=== PATIENT | female | born 2000 | race Caucasian/White ===

== ENCOUNTER 2024-02-21 08:00 | Outpatient (RCR) | payer MEDICAID, SELFPAY ==
--- NOTE | 2024-02-21 09:00 | BH.SGPN.GN ---
Behaviors/Verbalizations/Mental Status: [] Eye contact is good. Motor activity is appropriate. Appearance is casual. Speech is Appropriate. Mood is anxious. Affect is congruent. Thoughts are linear and logical. No evidence of psychosis. Reviewed daily check in sheet and no reports of suicidal ideations or intent. Client Response/Progress/Benefit: [] Pt provided feedback on a couple of occasions. Attentive. Daily symptom tracker notes 3/5 for anxiety and 2/5 for depressed/irritability. Today was pt's first day in IOP. She choose not to introduce herself or her reasons for entering IOP. Appeared visibly anxious. Peers introduced themselves and provided feedback and advice for her first day in IOP which was beneficial. No progress noted as this was pt's first day in IOP. Will continue in IOP to prevent decompensation, stabilize anxiety, increase healthy coping, and improve functioning. Narrative Note: []
--- NOTE | 2024-02-21 10:10 | BH.SGPN.GN ---
Behaviors/Verbalizations/Mental Status: []Pt alert and oriented, casually dressed and groomed. Eye contact good. Motor activity appropriate. Speech within normal limits. Affect congruent, mood depressed and anxious. Thoughts linear, logical, no signs of hallucinations or delusions. Client Response/Progress/Benefit: [] Pt was an active?participant in small group discussion. Pt?s group worked together to identify benefits of healthy relationships which included insight, accountability, and guidance. Group identified factors that lead to unhealthy relationships. Pt?s personal factors included past negative experiences, poor communication, and poor boundaries. Actively participated in group experiential activity and expressed ideas to group. Benefited from increased insight and awareness of benefits of healthy relationships and factors that contribute to unhealthy relationships. Will continue IOP tx to promote mood stability, increase self-compassion, confidence, and improve daily functioning. Narrative Note: []
--- NOTE | 2024-02-21 10:41 | BH.MTP ---
Master Treatment Plan Patient Information Program Physician:: Dr. Villalba Primary Therapist:: Ashanti Cox, [facility] Psychiatric Diagnoses Psychiatric Diagnoses:: 1. Generalized anxiety disorder F41.1 2. Panic disorder 3. Major depressive disorder, recurrent, moderate 4. Rule out dependent traits Diagnosis Code(s):: F41.1 Estimated LOS Estimated LOS (in weeks):: 6 Problem/Goal #1 Problem/Goal #1 Stated Goal:: Client will reduce overall frequency, intensity, and duration of anxiety so that daily functioning is not impaired. Description of Barriers: Potential barriers include: anxious thoughts, panic attacks, difficulty leaving the house, and cognitive distortions. Functional Impact: The patient is a 23-year-old, single female with a history of depression and anxiety who was referred by her physics technical officer for worsening symptoms of anxiety and depression. The patient is on probation for the past 3 years for drug possession charge that the patient took for a best friend although the patient did not commit the crime and has no never used drugs. The patient has no other history of legal issues. The patient had 2 positive tox screens while on probation and they were false positive due to Wellbutrin but this was traumatic for her so she discontinued all psych meds 2 years ago and feels her anxiety has worsened since then. She states that due to her anxiety is hard to go places and hard to do housework. She has trouble holding a job if it has a set schedule. She has low motivation, sadness and crying spells. She feels like a burden. She endorses hopelessness, worthlessness, erratic energy, decreased concentration, guilt and passive thoughts of . She endorses being a worrier by nature and having some racing thoughts on occasion. She is having panic attacks 1-3 times a day which last anywhere from an hour to all day. Objectives Objective #1: Stated Objective: Client will learn and implement 2-3 calming skills to reduce overall anxiety and manage anxiety symptoms. Interventions: Therapist and group sessions will help client identify physiological warning signs of anxiety, increase awareness of thoughts that increase anxiety, and identify behaviors that reinforce anxious symptoms. Group and individual counseling will teach client calming skills to help manage anxious symptoms. Discharge Criteria: Client will have achieved this goal when can verbalize at least 2 calming skills and reports skills successfully help reduce anxious symptoms. Target Date: 04/03/24 Review Date: 02/21/24 Objective #2: Stated Objective: Client will identify 2-3 anxiety triggers and 2 coping skills to use when feeling anxious. Interventions: Therapist will assist client in exploring what triggers anxiety and teach client coping strategies to effectively manage anxiety symptoms. Discharge Criteria: Client will have met this goal when can identify at least 2 triggers to anxiety and verbalize two healthy ways to cope with feelings of anxiety. Target Date: 04/03/24 Review Date: 02/21/24 Problem/Goal #2 Problem/Goal #2 Stated Goal:: Client will decrease depressive symptoms and isolation due to Major Depressive Disorder through Intensive Outpatient Program. Description of Barriers: Potential barriers include: anxious thoughts, panic attacks, difficulty leaving the house, and cognitive distortions. Functional Impact: The patient is a 23-year-old, single female with a history of depression and anxiety who was referred by her physics technical officer for worsening symptoms of anxiety and depression. The patient is on probation for the past 3 years for drug possession charge that the patient took for a best friend although the patient did not commit the crime and has no never used drugs. The patient has no other history of legal issues. The patient had 2 positive tox screens while on probation and they were false positive due to Wellbutrin but this was traumatic for her so she discontinued all psych meds 2 years ago and feels her anxiety has worsened since then. She states that due to her anxiety is hard to go places and hard to do housework. She has trouble holding a job if it has a set schedule. She has low motivation, sadness and crying spells. She feels like a burden. She endorses hopelessness, worthlessness, erratic energy, decreased concentration, guilt and passive thoughts of . She endorses being a worrier by nature and having some racing thoughts on occasion. She is having panic attacks 1-3 times a day which last anywhere from an hour to all day. Objectives Objective #1: Stated Objective: Client will learn and utilize 2-3 healthy coping strategies to manage depressive symptoms. Interventions: Therapist will utilize CBT techniques to assist client with understanding the connection between thoughts, feelings and behaviors. Education will be provided on behavioral activation. Therapist will assist client in learning internal coping strategies to manage depressive symptoms, along with helping client identify triggers. Discharge Criteria: Client will have achieved this goal when can verbalize and has practiced at least 2 healthy coping strategies that successfully manage depressive symptoms. Target Date: 04/03/24 Review Date: 02/21/24 Objective #2: Stated Objective: Client will identify and replace 2-3 negative thinking patterns that reinforce depressive symptoms. Interventions: Therapist will assist client in developing an awareness of the cognitive messages that reinforce depressive thinking. Therapist will also assist client in challenging negative thinking patterns. Discharge Criteria: Client will have achieved this goal when can identify at least 2 negative thinking patterns, replace negative thinking with more positive, affirmative messages. Target Date: 04/03/24 Review Date: 02/21/24
--- NOTE | 2024-02-21 11:10 | BH.SGPN.GN ---
Behaviors/Verbalizations/Mental Status: [] Pt alert and oriented, casually dressed and groomed. Eye contact fair. Motor activity appropriate. Speech within normal limits. Affect constricted, mood anxious, Thoughts linear, logical, no signs of hallucinations or delusions. Client Response/Progress/Benefit: [] Client responded well to session, engaged and taking notes throughout. Worked with group to connect components of the experiential activity with characteristics of healthy and unhealthy relationships. Attentive during psychoeducation about characteristics of healthy, unhealthy, and abusive relationships. Client reported she would like to work on communication by having a conversation with her partner on any areas she can improve on to make their relationship even better. Appeared to benefit from identifying current healthy relationship attributes and an area client wants to work on to build healthier relationships. Client to continue IOP to improve daily functioning, increase heatlhy coping, and prevent decompensation.
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
--- NOTE | 2024-02-23 09:20 | BH.NA_ITS ---
Physical Data Vital Signs Pulse Rate: 91 Blood Pressure: 129/85 Height/Weight Height: 1.68 m Weight:: 56.699 kg Weight in Pounds: 125.0 lbs Nutritional History Appetite Nutritional Instructions: Describe your appetite:: Good Additional nutritional information:: Client denies recent change in appetite or weight loss or gain. Functional Assessment Sleep Pattern Describe any problems with sleeping: Client states she sleeps about 4-5 hours per night. Sensory/Communication Assess Communication Problems Do you have difficulty understanding what people are saying?: No Medical Problems/History Pain Assessment Do you have acute or chronic pain?: No Surgical History Surgical History Have you had any surgeries? If so, list type and date:: No Substance Abuse Substance Abuse Please describe substance abuse in the last 30 days:: Client denies alcohol or substance use. Client states she does vape nicotine and smoke cigarettes on a daily basis. Client states she has one drink with caffeine per day, usually coffee or soda. Mental Status Summary Mental Status Significant Findings/Observations on Appearance and Mood:: Client is alert and oriented x 4. Client is casually groomed. Client is cooperative with assessment. Client makes fair eye contact. Client's voice has normal rate and volume. Client has a restricted and somewhat flat affect. Client makes logical associations and has normal processing. Client denies delusions/hallucinations. Client denies SI. Suicide Assessment Suicidal Ideation Are you currently or have you been suicidal in the past?: No Physician Notification Past Psychiatric History MH Treatment Hx Past Psychiatric Medications:: Wellbutrin, Lexapro, Zoloft, Buspar Age of first mental health symptoms: Client states she first had issues with anxiety and depression as a teenager and first took medication for her mental health around that time. Describe (age, circumstance, etc) any past hospitalizations: Client states she was hospitalized 2 times as a teenager for anxiety and panic attacks. Current providers for mental health treatment (counselor, psychiatrist, child support case officer, etc.): None. Fall Risk Assessment Age Age: Less than 60 Mental Status Mental Status: Willing & able to ask for assistance when needed Physical Status Physical Status: No problems Impairments Impairments: None Elimination Elimination: Continent AND independent Gait or Balance Gait or Balance: Walks independently Hx of Falls History of falls in the past 6 months: No known history Medications/Substances Medications/substances used within the past 24 hours or ordered to administer: None of the medications/substances list above Total Score Total Points:: 0 RN Summary of Impressions Impressions Recommendations Impressions: Psychiatric Issues: 1. Generalized anxiety disorder 2. Panic disorder 3. Major depressive disorder, recurrent, moderate 4. Rule out dependent traits 5. Primary support, legal and work issues Level of Care How do the client's current symptoms and functional deficits support need for this level of care?: Client was referred to IOP by her geological technical officer, and client also states she has a counselor in the past that recommended this program to her. Client states her anxiety has been a struggle since she was first on probation about 2 years ago for drug possession, although she states she has never done drugs. Client reports having daily panic attacks for about the past year. Client also reports racing thoughts, excessive worry, crying spells and irritability. Client denies SI. IOP will promote gains and prevent further decom pensation while providing social support and skills training.
--- NOTE | 2024-02-23 10:10 | BH.SGPN.GN ---
Behaviors/Verbalizations/Mental Status: []Pt alert and oriented, casually dressed and groomed. Eye contact good. Motor activity appropriate. Speech within normal limits. Affect congruent, mood depressed and anxious. Thoughts linear, logical, no signs of hallucinations or delusions. Client Response/Progress/Benefit: [] Pt engaged participant AEB listening attentively to others and providing input throughout group. Pt worked within their small group to identify strategies to manage inappropriate guilt. Shared a personal example of inappropriate guilt as feeling guilty for running late. Insight this leads to fear that others will hate her and over apologizing or over-compensating. Pt wants to work on combatting inappropriate guilt by challenging distortions and improving emotion regulation skills. Pt seemed to benefit from learning about strategies to manage appropriate and inappropriate guilt. Pt will continue IOP tx to reduce promote mood stability, reinforce healthy coping, and prevent decompensation. Narrative Note: []
--- NOTE | 2024-02-23 10:10 | BH.SGPN.GN ---
Behaviors/Verbalizations/Mental Status: []Pt alert and oriented, neatly dressed and groomed. Eye contact good. Motor activity appropriate. Speech within normal limits. Affect congruent, mood anxious. Thoughts linear, logical, no signs of hallucinations or delusions. Client Response/Progress/Benefit: [] Pt was an engaged participant AEB listening attentively to others, taking notes, and providing feedback in small group discussions. Attentive during psychoeducation AEB by note taking and providing some input. Pt worked along with peers in small groups to define inappropriate guilt and appropriate guilt. Worked well in small group with peers where they identified example of inappropriate vs appropriate guilt, and the impact inappropriate guilt can have on MH. Pt identified a personal example of inappropriate guilt as feeling bad when she runs late and assumes she has ruined ?everyone?s day.? Benefited from increased awareness of guilt and the differences between appropriate and inappropriate guilt. Plan is to continue in IOP to prevent decompensation, improve daily functioning, and gain healthy coping skills. Narrative Note: []
[2024-02-23 10:19] VITALS: BP 129/85; PULSE 91
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
--- NOTE | 2024-02-23 12:44 | BH.DR.ITP ---
Initial Treatment Plan Patient Information Visit Information: ADMISSION DATE: EXPECTED LOS: 4-6 weeks Problems/Symptoms Problem #1:: Anxiety Symptom:: Worry, rumination, panic attacks, avoidance, nightmares, flashbacks, triggers Problem #2:: Depression Symptom:: Sadness, hopelessness, worthlessness, decreased concentration, guilt, passive thoughts of
--- NOTE | 2024-02-27 09:00 | BH.SGPN.GN ---
Behaviors/Verbalizations/Mental Status: [] Client alert and oriented, casual appearance. Eye contact fair. Motor activity appropriate. Speech within normal limits. Affect congruent, mood anxious Thoughts linear, logical, no signs of hallucinations or delusions. Reviewed client's symptom tracker, no risk for suicidal ideation, plan, or intent. Client Response/Progress/Benefit: [] Client responded well to session AEB listening to others and sharing thoughts/feelings. Per daily symptom tracker client reported a 2/5, with 5 representing severe, for depression and a 4/5 for anxiety. Client reported mental health positive as feeling better after having to get her tooth abscess taken care of over the weekend. Client reported additional mental health positive as completed her [employer] shopping. Client stated current stressor was almost being late to IOP this morning which increases her anxiety and makes it hard for her to walk in late. Appeared to benefit from support from peers. Will continue IOP tx to challenge distorted/negative thoughts, decrease anxious avoidance, and prevent decompensation.
--- NOTE | 2024-02-27 10:10 | BH.SGPN.GN ---
Behaviors/Verbalizations/Mental Status: []Client alert and oriented, casually dressed and groomed. Eye contact good. Motor activity appropriate. Speech within normal limits. Affect congruent, mood euthymic, Thoughts linear, logical, no signs of hallucinations or delusions. Client Response/Progress/Benefit: [] Client responded well to session, contributing to discussion and engaged during the activity. Group identified the benefits of change which included: personal growth, increased confidence, improving mental health, progressing, and becoming resilient. Worked with the group to identify barriers to change, which included: fear of failure, lack of motivation, fear of the unknown, trauma, and negative thinking. Client participated along with group in activity where they discussed the emotions related to change. Benefited from increased awareness and understanding of emotions, benefits, and barriers related to change. Will continue IOP tx to increase positive self talk and self care. Narrative Note: []
--- NOTE | 2024-02-27 11:10 | BH.SGPN.GN ---
Behaviors/Verbalizations/Mental Status: [] Client alert and oriented, casually dressed and groomed. Eye contact good. Motor activity appropriate. Speech within normal limits. Affect full, mood euthymic, Thoughts linear, logical, no signs of hallucinations or delusions. Client Response/Progress/Benefit: [] Client responded well to session, attentive. Did well to process activity and work with group to relate the strategies used to overcome barriers in the activity to managing change in own life. Client identified a change they would like to make is to be able to pick out own outfits. Client identified currently being in preparation stage for this particular change. Client stated goal is to make more positive steps towards managing anxiety. Appeared to benefit from identifying a small goal to work towards. Client will continue IOP tx to prevent decompensation, gain healthy coping skills, and improve daily functioning. Narrative Note: []
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
--- NOTE | 2024-03-02 10:10 | BH.SGPN.GN ---
Behaviors/Verbalizations/Mental Status: []Eye contact is fair. Motor activity is appropriate. Appearance is casual. Speech is Appropriate. Mood is anxious. Affect is constricted. Thoughts are linear and logical. No evidence of psychosis. Client Response/Progress/Benefit: [] Pt was engaged and participating throughout, providing input and taking notes. Participated in an interactive discussion on defining anxiety and identifying cognitive and physiological symptoms of anxiety. The group discussed the role of anxiety on isolation, avoidance, and who this emotion impacts their ability to start and complete activities/goals. Pt identified their physical/physiological signs of anxiety which includes: hair loss, heavy chest, increased heart rate, and shaky hands. Benefited from increased awareness and insight on anxiety and its impact. Will continue in IOP to reinforce healthy coping skills, decrease anxious avoidnace, and improve daily functioning.
--- NOTE | 2024-03-02 10:41 | BH.MDN ---
Multi-Disciplinary Note Note 60-min Individual: Time Started:: 09:15 Date: 03/02/24 Purpose of session/treatment goals addressed:: Purpose of session was to address goals 1 and 2 from MTP. Eye Contact:: Fair Motor Activity:: Appropriate Appearance:: Casual Speech:: Appropriate Mood:: Anxious and Other (sad) Affect:: Congruent Thoughts:: Linear, Logical and No evidence of hallucinations/delusions noted Staff Interventions:: thought challenging, psychoeducation on: (anxiety triangle and safety behaviors), CBT techniques, rapport building, strengths perspective, goal setting and taught coping skills (belly breathing and grounding) Client Response:: Client shared this week has felt chaotic due to the holidays. Client reported her anxiety on Tuesday did prevent her and her boyfriend from going to his family's holiday alliance party. Client stated she thought they had decided to not go on Tuesday and were planning to go a different day this week. However, client stated her boyfriend woke her up and asked if she was planning to get ready, but her anxiety of feeling rushed eventually led them to not go to the alliance party. Client stated she has significant anxiety about picking out her outfit if she is leaving the house. Client reported most often her boyfriend picks out her outfit or will have to do her hair so that she can leave the house. Client reported her boyfriend rides with her to come to [facility] because she is worried she won't come in to the program if she comes by herself. client reported in the past she lost her college scholarship because she would drive to class, but stay in her car due to anxiety. Client shared in the past she has attempted to lay out and outfit the night before but still would struggle because if the alpha does not feel right then she cannot wear it. Client reports she also struggles if she has a outfit idea in her mind but cannot find parts of that outfit then she will start to feel panicky. Client stated she also struggles with having ritual on how to get dressed and if she puts on her clothes the wrong way in her mind then she has to redress. Client reported her anxiety has kept her from doing much outside the house beyond being able to go to work. Client states she feels like getting to work is easier because she typically only picks up evening shifts so worries less about what she is wearing. Client reported she is also been able to maintain her current job because she is in control of when she works. Client connected with psychoeducation about anxiety triangle. Client stated the most common safety behavior that she engages in to decrease her anxiety would be avoidance by either not going to events or having her boyfriend make decisions for her. Client stated she is open to eventually doing exposure preschools to help decrease her anxiety and increase her independence. Client responded well to being taught about diaphragmatic breathing and grounding tools. Client agreeable to practice using calming skills to help manage anxiety to help decrease her avoidance. Risks/Concerns:: Denies suicide ideation, plan, intention. Future oriented. Progress Toward Goals/Plan:: Progress limited as evidenced by client continuing to report significant anxiety and only leaving her house when she has to go to work or IOP. Client is coming to IOP only if her boyfriend drives in the car with her out of fear and worry that she will walk into the building if she arrives late. Client still struggling with being able to pick out her own office in the morning and often needs her boyfriend to make those decisions for her. Client states she has been taking her new medication consistently but thus far has not seen a positive impact. Client stated she has noted some increased dizziness off and on throughout the day since starting this medication. Plan is for client to continue IOP to decrease anxious avoidance, increase use of healthy coping skills, and prevent decompensation. Time Stopped:: 10:10
--- NOTE | 2024-03-02 11:10 | BH.SGPN.GN ---
Behaviors/Verbalizations/Mental Status: []Pt alert and oriented, casually dressed and groomed. Eye contact good. Motor activity appropriate. Speech within normal limits. Affect congruent, mood anxious. Thoughts linear, logical, no signs of hallucinations or delusions. Client Response/Progress/Benefit: [] Pt was an active participant AEB pt providing input and listening attentively to peers. Attentive during psychoeducation on mindfulness coping skills and their impact on reducing anxiety and improving overall mental health wellness. Group was able to identify self-soothing and mind-based coping skills which included: 5-senses, meditation, deep breathing, TIPP, thought challenging, categories, and progressive muscle relaxation. Pt also participated with peers in practicing mindfulness skills in session including deep breathing. Pt would like to work on the 5-senses to manage anxiety. Appeared to benefit from increasing repertoire of anxiety reduction skills. Pt will continue in IOP tx to prevent decompensation, improve daily functioning, and gain healthy coping skills. Narrative Note: []
== END 2024-03-06 23:59 ==
LOC: BHIOP 08:00
PROVIDERS: Referring Provider Psychiatry & Neurology Psychiatry; Visit Provider Psychiatry & Neurology Psychiatry
DX: F33.1 Major depressive disorder, recurrent, moderate (principal); F41.1 Generalized anxiety disorder; F41.0 Panic disorder [episodic paroxysmal anxiety]
CPT/HCPCS: H2012; H2020; S9480; 90837

== ENCOUNTER 2024-03-08 07:08 | Outpatient (RCR) | payer MEDICAID, SELFPAY ==
[2024-03-07 00:53] VITALS: BP 129/85; PULSE 91
--- NOTE | 2024-03-08 10:10 | BH.SGPN.GN ---
Behaviors/Verbalizations/Mental Status: [] Eye contact is poor. Motor activity is appropriate. Appearance is casual. Speech is Appropriate. Mood is depressed. Affect is flat. Thoughts are linear and logical. No evidence of psychosis. Client Response/Progress/Benefit: [] Pt did not participate during group discussions. Distracted during most of group (drawing). Attentive at times during psychoeducation and interactive discussion on coping skills, why people use unhealthy coping skills, how to replace unhealthy coping skills, and internal vs external coping skills. Attentive at times as peers came up with list of unhealthy coping skills. Attentive at times as group discussed the effects of maladaptive coping skills on mental health. Benefited from increased understanding of unhealthy coping skills and the need for developing healthy internal and external coping skills. Actively participated during experiential group activity and was able to related this activity to group topic. Will continue in IOP to prevent decompensation, increase healthy coping, and improve functioning. Narrative Note: []
--- NOTE | 2024-03-08 11:15 | BH.SGPN.GN ---
Behaviors/Verbalizations/Mental Status: []Pt alert and oriented, casually dressed and groomed. Eye contact good. Motor activity appropriate. Speech within normal limits. Affect congruent, mood depressed and anxious. Thoughts linear, logical, no signs of hallucinations or delusions. Client Response/Progress/Benefit: [] Pt responded well to session, taking notes and contributing when prompted. Group discussed the different categories of coping skills which included distraction, emotional release, grounding, self-love, and thought challenging. Pt participated in creating a coping skills ?menu? from the different categories of coping skills. Pt's coping skill menu included: music, cleaning, art, 5-senses, affirmations, and boundaries. Appeared to benefit from increasing repertoire of healthy coping skills. Will continue IOP to prevent decompensation, improve daily functioning, and promote mood stability. Narrative Note: []
--- NOTE | 2024-03-13 10:10 | BH.SGPN.GN ---
Behaviors/Verbalizations/Mental Status: [] Eye contact is fair. Motor activity is appropriate. Appearance is casual. Speech is Appropriate. Mood is anxious. Affect is congruent. Thoughts are linear and logical. No evidence of psychosis. Client Response/Progress/Benefit: [] Pt was an active participant during group discussions and group activities. This portion of group was very psychoeducation heavy and pt was attentive during psychoeducation. Engaged during activity in which they identified which type of foods (i.e. carbs, sugar, salt, fast food, caffeine, etc) they seek out when sad, tired, angry, stressed, anxious, etc. Pt was able to identify the impact that certain foods have on their mental health through group example which was beneficial. Benefited from increased awareness of the connection between nutrition and mental health. Will continue in IOP to decrease anxious avoidance, increase use of healthy calming tools, and prevent decompensation.
--- NOTE | 2024-03-13 13:30 | BH.MDN ---
Multi-Disciplinary Note Note 45-min Individual: Time Started:: 11:15 Date: 03/13/24 Purpose of session/treatment goals addressed:: Purpose of session was to address goals 1 and 2 from MTP. Eye Contact:: Fair Motor Activity:: Restless Appearance:: Casual Speech:: Appropriate Mood:: Anxious and Dysthymic Affect:: Congruent Thoughts:: Linear, Logical and No evidence of hallucinations/delusions noted Staff Interventions:: thought challenging, CBT techniques, mindfulness skills, rapport building, strengths perspective and goal setting Client Response:: Client reported last week she woke up and was alone and had the immediate thought that her boyfriend was using drugs again. Client stated she immediately left the house and went to a friend's for the next 4 days without telling anybody which she was doing. Client stated she chose to ignore him and not express what she was doing. Client stated she eventually went back home after 4 days and he told her he was in the bedroom the the night she woke up in the basement and he had never left the house. Client reported she made him do a drug test to confirm that he has not been using and a drug test came back negative. Client stated she has done this before in which she left for 1-1/2 months when they first started dating but that was because she found that she he was using drugs. Client stated her jumping to conclusions has made things more difficult for the relationship because she told her mom and grandma that she thought he was using drugs again. Client reported due to this her grandma kicked her boyfriend out of the house even though his drug test came back negative. Client stated she is unsure why she immediately jump to worst case scenario and did not try to go find him to talk about what was going on. Client and therapist discussed additional strategies that might help help in the future with client being more direct with her thoughts instead of avoiding and shutting everybody out. Client reported beyond the stress of overreacting last week she still feels like she has been struggling with anxiety. Client stated she does not feel like she is noticing any benefit from her medication at this time. Client agreeable to meet with [facility] psychiatrist next time to discuss other options. Client agreeable to practice more consistently calming skills like breathing tools and grounding tools to help decrease her anxiety and decrease avoidance of anxious situations. Risks/Concerns:: Denies suicidal ideation, plan, intention. Future oriented. Progress Toward Goals/Plan:: Slight decompensation noted as client catastrophize situation that led to her shutting out family and her boyfriend for 4 days without communicating what she was doing. Client noting continued anxious symptoms and challenges with avoiding anxious feelings. Reviewed impact avoidance can have on her anxiety and reviewed the importance of engaging in exposure goals. Therapist and client discussed ways client could start to work on exposure goals while in IOP which included participating verbally without being prompted at least once per group. Plan is for client to continue IOP to decrease anxious avoidance, increase use of healthy coping skills, and prevent decompensation. Time Stopped:: 12:00
--- NOTE | 2024-03-14 14:53 | BH.MTP_ITS ---
Treatment Plan Review Demographics Date of Admission:: 02/21/24 Date of Treatment Plan Review:: 03/14/24 Admitting Diagnoses:: 1. Generalized anxiety disorder F41.1 2. Panic disorder 3. Major depressive disorder, recurrent, moderate 4. Rule out dependent traits Current Diagnoses:: 1. Generalized anxiety disorder F41.1 2. Panic disorder 3. Major depressive disorder, recurrent, moderate 4. Rule out dependent traits Patient Status Patient's Response to Treatment:: Client showed consistent attendance in first two weeks of program, however has been struggling with attendance for the last 2 weeks. Client appears to be attentive during group sessions, does not provide verbal contributions unless elicited by therapists. Client struggling to apply skills learned in group/individual sessions on consistent basis. Status of Current Problems and Symptoms: Ongoing problems. Client continuing to struggle with avoidance of anxious situations. Last week client avoided dealing with a stressor with her boyfriend by leaving her house to go stay with a friend for 4 days and not telling anyone where she was. Client shared today she realizes this was her escaping and she has recognizes she jumped to conclusions about her boyfriend. Client reported she had assumed he was using drugs again despite not having any evidence so she avoided the situation for 4 days. Client has had to work on being more independent because her boyfriend was kicked out of the house by client's grandma. Client continues to report mild depressed symptoms and moderate anxiety symptoms. Per DSM 5 cross-cutting measure client scores indicate a 24% reduction in overall symptoms. Progress Problem #1: Problem Name:: Anxiety Status of Goals:: Obj 1 - progress noted, ongoing work encouraged. Client is able to identify healthy calming skills like belly breathing, grounding tools, and meditation. client has struggled with consistent use of those skills. Client often still engages in avoidance of anxious situations. Obj 2 - progress noted, ongoing work encouraged. Client able to identify anxiety triggers, however struggling with using coping skills to manage the anxiety on consistent basis. Per DSM 5 cross-cutting measure scores indicate a 25% decrease in anxiety. Team Recommendations:: Team recommends continued work on goals and objectives to give more time and focus on helping client increase consistent use of these skills outside treatment environment. Team encourages open conversation with client about importance of consistent attendance and communicating with team when she can't make it to IOP scheduled day. Problem #2: Problem Name:: Depression Status of Goals:: Obj 1 - progress noted, ongoing work encouraged. Client is able to identify healthy coping skills like opposite action, changing environment, and setting small goals. Client has struggled with consistent use of those skills. Client often still engages in avoidance of anxious situations. Obj 2 - progress noted, ongoing work encouraged. Client starting to gain increased awareness of negative thought patterns. Could benefit from continued practice on challenging these thoughts. Per DSM 5 cross-cutting measure scores indicate a 50% decrease in depression. Team Recommendations:: Team recommends continued work on goals and obj ectives to give more time and focus on helping client increase consistent use of these skills outside treatment environment. Team encourages open conversation with client about importance of consistent attendance and communicating with team when she can't make it to IOP scheduled day.
--- NOTE | 2024-03-16 09:05 | BH.SGPN.GN ---
Behaviors/Verbalizations/Mental Status: [] Eye contact is good. Motor activity is appropriate. Appearance is casual. Speech is Appropriate. Mood is depressed/irritable. Affect is congruent. Thoughts are linear and logical. No evidence of psychosis. Reviewed daily check in sheet and no reports of suicidal ideations or intent. Client Response/Progress/Benefit: [] Pt participated at times during the group discussions. ?Attentive. Pt states ? I made it here?. Shared with the group that she had a ?bad day? yesterday. Elaborated further which appeared to be a mixture of external stressors, a migraine, and mental health struggles. Reported feeling powerless over the day. Encouraged her to utilize the struggles to increase insight on knowledge she could utilize in the future, however, reports she is unable. No progress noted. Benefited from group support and encouragement. Will continue in IOP to prevent decompensation, stabilize mood, and improve functioning. Narrative Note: []
--- NOTE | 2024-03-16 10:10 | BH.SGPN.GN ---
Behaviors/Verbalizations/Mental Status: [] Eye contact is fair to good. Motor activity is appropriate. Appearance is casual. Speech within normal limits. Mood is depressed and anxious. Affect is congruent. Thoughts are linear and logical. No evidence of psychosis. ? ? Client Response/Progress/Benefit: [] Client was a semi-active participant in group discussion and experiential activity. Attentive during psychoeducation on resilience but did not offer additional input. Participated in interactive discussion with peers on the definition of resilience and where it comes from. Group identified that resiliency can be impacted by; past experiences, upbringing, and current mental health state. Group also worked together to identify the benefits of being resilient and how it is related to mental health. Able to relate experiential activity of group juggle to topics of resilience. Worked with peers in small group in which they identified factors that contribute to resilience. Benefited from increased awareness of resilience and the factors that contribute to building resilience. Will continue in IOP to increase healthy thought patterns and further promote mood stability. Narrative Note: []
--- NOTE | 2024-03-16 11:15 | BH.SGPN.GN ---
Behaviors/Verbalizations/Mental Status: []Pt alert and oriented, disheveled appearance. Eye contact good. Motor activity appropriate. Speech within normal limits. Affect congruent, mood depressed and anxious. Thoughts linear, logical, no signs of hallucinations or delusions. Client Response/Progress/Benefit: [] Pt responded well to session AEB completing the resilience worksheet provided. Pt actively participated in the discussion and worked cooperatively with group to identify strategies to enhance each of the components discussed. Pt reports belief they already use resilience trait of ?self-awareness and keeping things in perspective.? Pt discussed that they could work on nurturing a positive view of themselves by ?starting to read affirmations.? Pt seemed to benefit from discussing strategies for improving personal resilience and identifying resilience traits Pt already possesses. Will continue IOP tx to increase application of healthy coping skills, combat distortions, and reduce avoidance. Narrative Note: []
--- NOTE | 2024-03-19 05:58 | PCM.BH.PN_ITS ---
Progress Note Progress Note: Progress Note Progress Note: History of Present Illness/Interim History: Saundra Hastings is a 23 year old female who presents today for follow up as part of her intensive outpatient programming. Patient admits that she is in IOP as a condition of her probation through [facility]. Did get a new business development officer yesterday, but told that it is suspicious. She is unsure what they meant by this. Now is on random drug testing until they get results. Patient reports that she was recommended to do behavioral IOP rather than drug and alcohol. Has been having anxiety worse in the recent past, but also has some significant depression as well. Was started on Effexor about 3 weeks ago and she has not noticed much difference to this point. Does think that hydroxyzine makes her tired at night. Sometimes feels like she could sleep all night and all day, and other nights feels like she can't sleep at all. Admits to having panic attack symptoms nearly daily. These can be because of external stimuli or just for random reason. Has been taking propranolol and again doesn't feel like she noticed a significant benefit to this point. Andino been getting some weird twitches but is unsure what causes, but does have suspicion if medicine. Was recommended to cut back on energy drinks and has dramatically reduced use. Current Psychiatric Medications: Venlafaxine 37.5 mg every day, propranolol 10 mg twice a day, hydroxyzine 25 mg at bedtime Mental Status Examination: Appearance casually dressed and somewhat frail Attitude cooperative Activity/Motor Behavior MSE activity/motor behavior finding no adventitious movements Speech regular rate, regular volume and regular prosody Mood depressed and anxious Affect congruent Thought Process linear, logical and coherent Thought Content no delusions and no hallucinations Suicidal Ideation none Homicidal Ideation none Attention intact Concentration intact Sensorium/Orientation awake, alert and oriented x3 Memory/Cognition other (appropriate for stated age) Insight fair Judgement Fair Diagnoses: 1. Major depressive disorder, recurrent, moderate 2. Generalized anxiety disorder 3. Panic disorder 4. Cluster B personality traits Plan: The patient will continue the IOP in behavioral health as the structure, support, education and group therapy will hopefully prevent worsening of the patient's symptoms. She felt safe during the interview and if it anytime she does not feel safe she agrees to let us know or go to the emergency room. The risk, options, possible complications and side effects of the medications were again discussed with the patient and she understands and accepts these. Patient was unwilling to continue her Effexor at this time. States that she previously did well on Wellbutrin and wishes to return to this medication rather than continue on Effexor. We will start Wellbutrin 150 mg every day.Patient was informed of the risks, benefits and likely side effects of Wellbutrin. These side effects include but are not limited to appetite suppression, headache, diaphoresis, tachycardia, nausea, and insomnia. Wellbutrin can lower the seizure threshold, if you have a history of seizure disorder or have a seizure while taking the medication, please discontinue the medication and inform office i mmediately.
--- NOTE | 2024-03-20 10:15 | BH.SGPN.GN ---
Behaviors/Verbalizations/Mental Status: [] Client alert and oriented, casually dressed and groomed. Eye contact good. Motor activity appropriate. Speech within normal limits. Affect congruent, mood dysthymic and anxious. Thoughts linear, logical, no signs of hallucinations or delusions. Client Response/Progress/Benefit: [] Pt responded well to session AEB sharing and listening attentively to others. Group provided examples of benefits of having social support, including: validation, help in coping with stressors, company, and accountability. Pt also participated in group discussion regarding the barriers to accessing support identifying examples to include: negative thinking, lack of communication, and fear of being a burden or judgement. Shared struggling personally with negative self-talk and isolation or avoiding supports. Pt participated in experiential activity illustrating the impact communication, boundaries, and patience play in creating healthy support systems. Pt appeared to benefit from increased knowledge of the benefits of social support and greater self-awareness. Pt to continue IOP to improve mood stability, increase consistent use of healthy coping skills to maintain mood stability, and prevent decompensation. Narrative Note: []
--- NOTE | 2024-03-20 11:15 | BH.SGPN.GN ---
Behaviors/Verbalizations/Mental Status: [] Eye contact is poor. Motor activity is appropriate. Appearance is casual. Speech is Appropriate. Mood is depressed/ Affect is flat. Thoughts are linear and logical. No evidence of psychosis. Client Response/Progress/Benefit: [] Limited participation and engagement in group discussions however did participate in experiential activity. Also appeared distracted at times, however did take notes and complete worksheets. Attentive and provided input on types and examples of support (emotional, tangible, informational, and social). Pt able to identify current support system and barriers that get in the way of using supports (fear, negtive self-talk, toxic people, dont ask for help) Able to identify areas of support which could be increased which included social and emotional Pt seemed to benefit from identifying the type of support pt needs to work on improving. Will continue in IOP to prevent decompensation, stabilize mood, and increase healthy coping skills as well as functioning. Narrative Note: []
--- NOTE | 2024-03-22 09:53 | BH.MTP ---
Master Treatment Plan Patient Information Program Physician:: Dr. Villalba Primary Therapist:: Ashanti Cox, [facility] Psychiatric Diagnoses Psychiatric Diagnoses:: 1. Generalized anxiety disorder F41.1 2. Panic disorder 3. Major depressive disorder, recurrent, moderate 4. Rule out dependent traits Diagnosis Code(s):: F41.1 Estimated LOS Estimated LOS (in weeks):: 6 Problem/Goal #1 Problem/Goal #1 Stated Goal:: Client will reduce overall frequency, intensity, and duration of anxiety so that daily functioning is not impaired. Description of Barriers: Potential barriers include: anxious thoughts, panic attacks, difficulty leaving the house, and cognitive distortions. Functional Impact: The patient is a 23-year-old, single female with a history of depression and anxiety who was referred by her enforcement safety officer for worsening symptoms of anxiety and depression. The patient is on probation for the past 3 years for drug possession charge that the patient took for a best friend although the patient did not commit the crime and has no never used drugs. The patient has no other history of legal issues. The patient had 2 positive tox screens while on probation and they were false positive due to Wellbutrin but this was traumatic for her so she discontinued all psych meds 2 years ago and feels her anxiety has worsened since then. She states that due to her anxiety is hard to go places and hard to do housework. She has trouble holding a job if it has a set schedule. She has low motivation, sadness and crying spells. She feels like a burden. She endorses hopelessness, worthlessness, erratic energy, decreased concentration, guilt and passive thoughts of . She endorses being a worrier by nature and having some racing thoughts on occasion. She is having panic attacks 1-3 times a day which last anywhere from an hour to all day. Objectives Objective #1: Stated Objective: Client will learn and implement 2-3 calming skills to reduce overall anxiety and manage anxiety symptoms. Interventions: Therapist and group sessions will help client identify physiological warning signs of anxiety, increase awareness of thoughts that increase anxiety, and identify behaviors that reinforce anxious symptoms. Group and individual counseling will teach client calming skills to help manage anxious symptoms. Discharge Criteria: Client will have achieved this goal when can verbalize at least 2 calming skills and reports skills successfully help reduce anxious symptoms. Objective #2: Stated Objective: Client will identify 2-3 anxiety triggers and 2 coping skills to use when feeling anxious. Interventions: Therapist will assist client in exploring what triggers anxiety and teach client coping strategies to effectively manage anxiety symptoms. Discharge Criteria: Client will have met this goal when can identify at least 2 triggers to anxiety and verbalize two healthy ways to cope with feelings of anxiety. Problem/Goal #2 Problem/Goal #2 Stated Goal:: Client will decrease depressive symptoms and isolation due to Major Depressive Disorder through Intensive Outpatient Program.? Description of Barriers: Potential barriers include: anxious thoughts, panic attacks, difficulty leaving the house, and cognitive distortions. Functional Impact: The patient is a 23-year-old, single female with a history of depression and anxiety who was referred by her enforcement safety officer for worsening symptoms of anxiety and depression. The patient is on probation for the past 3 years for drug possession charge that the patient took for a best friend although the patient did not commit the crime and has no never used drugs. The patient has no other history of legal issues. The patient had 2 positive tox screens while on probation and they were false positive due to Wellbutrin but this was traumatic for her so she discontinued all psych meds 2 years ago and feels her anxiety has worsened since then. She states that due to her anxiety is hard to go places and hard to do housework. She has trouble holding a job if it has a set schedule. She has low motivation, sadness and crying spells. She feels like a burden. She endorses hopelessness, worthlessness, erratic energy, decreased concentration, guilt and passive thoughts of . She endorses being a worrier by nature and having some racing thoughts on occasion. She is having panic attacks 1-3 times a day which last anywhere from an hour to all day. Objectives Objective #1: Stated Objective: Client will learn and utilize 2-3 healthy coping strategies to manage depressive symptoms. Interventions: Therapist will utilize CBT techniques to assist client with understanding the connection between thoughts, feelings and behaviors. Education will be provided on behavioral activation. Therapist will assist client in learning internal coping strategies to manage depressive symptoms, along with helping client identify triggers. Discharge Criteria: Client will have achieved this goal when can verbalize and has practiced at least 2 healthy coping strategies that successfully manage depressive symptoms. Objective #2: Stated Objective: Client will identify and replace 2-3 negative thinking patterns that reinforce depressive symptoms. Interventions: Therapist will assist client in developing an awareness of the cognitive messages that reinforce depressive thinking. Therapist will also assist client in challenging negative thinking patterns. Discharge Criteria: Client will have achieved this goal when can identify at least 2 negative thinking patterns, replace negative thinking with more positive, affirmative messages.
--- NOTE | 2024-03-29 10:15 | BH.SGPN.GN ---
Behaviors/Verbalizations/Mental Status: []Eye contact is fair. Motor activity is appropriate. Appearance is casual. Speech is Appropriate. Mood is anxious. Affect is constricted. Thoughts are linear and logical. No evidence of psychosis Client Response/Progress/Benefit: [] Pt engaged in session AEB taking notes and interacting with peers. Pt engaged in activity, able to connect how it can be uncomfortable and difficult to accept when things are out of one?s own control. Worked with peer group to identify things in life which are hard to accept and identified personal things that are hard to accept including ?mental health and others.? Seemed to benefit from increased awareness of the meaning as well as the importance of acceptance. Pt also worked on what acceptance is vs is not for own personal example. Will continue in IOP to prevent decompensation, reduce avoidance, and increase distress tolerance skills. ? Narrative Note: []
--- NOTE | 2024-03-29 13:31 | BH.MDN_ITS ---
Multi-Disciplinary Note Note 45-min Individual: Time Started:: 11:15 Date: 03/29/24 Purpose of session/treatment goals addressed:: Purpose of session was to address goals 1 and 2 from MTP. Eye Contact:: Fair Motor Activity:: Appropriate Appearance:: Casual Speech:: Appropriate Mood:: Anxious Affect:: Congruent Thoughts:: Linear, Logical and No evidence of hallucinations/delusions noted Staff Interventions:: thought challenging, CBT techniques, discharge planning, strengths perspective and goal setting Client Response:: Client reported feeling she has been doing well for the last week and a half with decreased anxious avoidance and improve daily functioning. Client stated she has been able to drive herself to [facility] without the need of her boyfriend being with her. Client reports she has also been trying to work on picking out her own outfits instead of relying on her boyfriend to pick those out for her. Client stated she has been able to get out of the house a little bit more often to complete tasks like going grocery shopping without the need of having somebody with her. Client agreed she has not been super consistent with [facility] attendance but despite this she reported gaining a lot of information skills from group therapy which she noted has helped her learn healthy coping skills to manage her anxious symptoms more effectively. Therapist and client discussed discharge plans and therapist offered for client to stay a little longer in the program since client has averaged attending 2 times a week. Client stated she feels like if her mood and anxiety continue to stay managed she feels ready to discharge from [facility] next week. Client reported if something were to change she would communicate that to the therapist and extend her time in [facility]. Client stated she does believe getting back on her previous medication that helped with her anxiety has been helpful with managing the racing thoughts. Client agreeable to contact the phone numbers provided to set up for individual counseling and to establish with a primary care doctor that will maintain her medication prescription. Risks/Concerns:: Denies suicide ideation, plan, intention. Progress Toward Goals/Plan:: Client reports significant decrease in her anxious symptoms with improved daily functioning. Client stated she engaging in less avoidance of anxious situations and using her healthy coping skills like belly breathing and grounding tools more consistently. Client reported she notices there are times in which she still will need reassurance from her boyfriend but feels like she has been doing better with some independent decision making. Client stated she has been able to drive herself to IOP without having to have her boyfriend come with their which is progress given he used to drive her to IOP when she first started. Plan is for client to discharge from IOP next week. Time Stopped:: 12:00
== END 2024-04-06 23:59 ==
LOC: BHIOP 07:08
PROVIDERS: Referring Provider Psychiatry & Neurology Psychiatry; Visit Provider Psychiatry & Neurology Psychiatry
DX: F41.1 Generalized anxiety disorder (principal); F41.0 Panic disorder [episodic paroxysmal anxiety]; F33.1 Major depressive disorder, recurrent, moderate; Z79.899 Other long term (current) drug therapy
CPT/HCPCS: H2012; H2020; S9480; 90834

== ENCOUNTER 2024-04-09 14:47 | Outpatient (RCR) | payer MEDICAID, SELFPAY ==
[2024-04-07 01:15] VITALS: BP 129/85; PULSE 91
--- NOTE | 2024-04-09 14:31 | BH.COMM_ITS ---
Communication Note Communication with Client Communication Note: This freelance copywriter contacted client via phone call to discuss client's plan for IOP since she missed all of last week. Client reported she had the flu last week which is why she didn't attend. This freelance copywriter reminded client she needed to call in to cancel or it would lead to discharge from program. Client expressed understanding. Client stated she would like to complete the program and would like to return to IOP tomorrow and Tuesday of this week. Client stated as long as she is still doing well she would like to discharge IOP on Tuesday.
--- NOTE | 2024-04-10 09:10 | BH.SGPN.GN ---
Behaviors/Verbalizations/Mental Status: [] Eye contact is good. Motor activity is appropriate. Appearance is casual. Speech is Appropriate. Mood is anxious. Affect is congruent. Thoughts are linear and logical. No evidence of psychosis. Reviewed daily check in sheet and no reports of suicidal ideations or intent. Client Response/Progress/Benefit: [] Pt was an active participant in group discussions. Attentive. Daily symptom tracker notes 03/11 for anxiety. Reports mood and functioning are better. Shred with the group that she missed several IOP days due to illness. ? I was really sick?. Shared that she was very tired which caused her to spend a majority of the days in bed. Despite this she declined any significant mental health struggles ? which was weird?. She often isolates when feeling well however while sick had an desire to be active and leave the house ? which isn?t like me?. She attributes some of this to progress in IOP in the past several weeks. Emotion is ? calm?. Limited progress due to not being in IOP for several days. Benefited from group support, encouragement, and feedback. Will continue in IOP to prevent decompensation, stabilize mood, and improve functioning. Narrative Note: []
--- NOTE | 2024-04-10 10:10 | BH.SGPN.GN ---
Behaviors/Verbalizations/Mental Status: []Eye contact is good. Motor activity is appropriate. Appearance is casual. Speech is Appropriate. Mood is anxious and content. Affect is congruent. Thoughts are linear and logical. No evidence of psychosis. Client Response/Progress/Benefit: [] Pt was engaged and participating throughout, providing input and taking notes. Participated in an interactive discussion on defining anxiety and identifying cognitive and physiological symptoms of anxiety. The group discussed the role of anxiety on isolation, avoidance, and how this emotion impacts their ability to start and complete activities/goals. Pt identified their physical/physiological signs of anxiety which includes: headache, short of breath, and biting nails. Benefited from increased awareness and insight on anxiety and its impact. Will continue in IOP to decrease anxious avoidance, increase healthy coping skills, and prevent decompensation. Narrative Note: []
--- NOTE | 2024-04-10 11:08 | BH.SGPN.GN ---
Behaviors/Verbalizations/Mental Status: []Pt alert and oriented, casually dressed and groomed. Eye contact good. Motor activity appropriate. Speech within normal limits. Affect congruent, mood anxious. Thoughts linear, logical, no signs of hallucinations or delusions. Client Response/Progress/Benefit: []Pt was an active participant AEB pt providing input and listening attentively to peers. Attentive during psychoeducation on mindfulness coping skills and their impact on reducing anxiety and improving overall mental health wellness. Group was able to identify self-soothing and mind-based coping skills which included: 5-senses, meditation, deep breathing, categories, thought challenging, categories, and progressive muscle relaxation. Pt also participated with peers in practicing mindfulness skills in session including deep breathing and PMR. Pt would like to work on 5-senses to manage anxiety. Appeared to benefit from increasing repertoire of anxiety reduction skills. Pt will continue in [facility] tx to reinforce healthy coping skills, reduce negative thinking patterns, and establish aftercare. Narrative Note: []
--- NOTE | 2024-04-11 10:10 | BH.SGPN.GN ---
Behaviors/Verbalizations/Mental Status: []Eye contact is good. Motor activity is appropriate. Appearance is casual. Speech is Appropriate. Mood is anxious. Affect is congruent. Thoughts are linear and logical. No evidence of psychosis. Client Response/Progress/Benefit: []Pt was an active participant in group discussion. Engaged and attentive during psychoeducation and interactive discussion on coping skills, why people use unhealthy coping skills, how to replace unhealthy coping skills, and internal vs external coping skills. Attentive as peers came up with list of unhealthy coping skills. Pt reported personally, pt using avoidance and shutting down to cope which has led to loss of functioning. Group discussed the effects of maladaptive coping skills on mental health. Benefited from increased understanding of unhealthy coping skills and the need for developing healthy internal and external coping skills. Actively participated during experiential group activity and was able to related this activity to group topic. Will discharge from [facility] tx today per pt request. Narrative Note: []
--- NOTE | 2024-04-11 11:10 | BH.SGPN.GN ---
Behaviors/Verbalizations/Mental Status: []Pt alert and oriented, casual in appearance. Eye contact fair. Motor activity appropriate. Speech within normal limits. Affect constricted, mood dysthymic and anxious. Thoughts linear, logical, no signs of hallucinations or delusions. Client Response/Progress/Benefit: [] Pt engaged participant AEB provided contributions during discussion, taking notes, and listening attentively to others. Engaged in the provided activity. Group discussed the different categories of coping skills which included distraction, emotional release, grounding, self-love, and thought challenging. Pt participated in creating a coping skills ?menu? from the different categories of coping skills. Pt's coping skill menu included: breathing skills, taking a walk, meditation, and gratitude list. Appeared to benefit from increasing repertoire of healthy coping skills. Will continue IOP to increase consistent use of skills, decrease anxious avoidance, and prevent decompensation.
--- NOTE | 2024-04-11 14:34 | BH.DS_ITS ---
Discharge Summary Demographics Date of Admission:: 02/21/24 Discharge Date: 04/11/24 Presenting Problems at Admission:: The patient is a 23-year-old, single female with a history of depression and anxiety who was referred by her public records officer for worsening symptoms of anxiety and depression. The patient is on probation for the past 3 years for drug possession charge that the patient took for a best friend although the patient states she did not commit the crime and has never used drugs. The patient has no other history of legal issues. The patient had 2 positive tox screens while on probation and they were false positive due to Wellbutrin but this was traumatic for her so she discontinued all psych meds 2 years ago and feels her anxiety has worsened since then. She states that due to her anxiety it is hard to go places and hard to do housework. She has trouble holding a job if it has a set schedule. She has low motivation, sadness and crying spells. She feels like a burden. She endorses hopelessness, worthlessness, erratic energy, decreased concentration, guilt and passive thoughts of . She endorses being a worrier by nature and having some racing thoughts on occasion. She is having panic attacks 1-3 times a day which last anywhere from an hour to all day. Discharge Diagnoses:: 1. Major depressive disorder, recurrent, moderate F33.1 2. Generalized anxiety disorder 3. Panic disorder Reason for Discharge:: Pt reports improvement in her treatment goals and feels ready to discharge to once a week individual counseling. Treatment Progress During Treatment & Response: Per DSM 5 cross-cutting symptom measure her depression decreased by 63%, anxiety decreased by 50%, thoughts of hurting self decreased by 100%, and overall mental health symptoms decreased by 50%. Pt reported decreased panic attacks, some improvement with independence, and decrease in avoiding anxious situations. Pt did exposure goals by driving self to IOP sessions towards middle of treatment. Pt showed increased contributions to group sessions as she became more comfortable with group setting. Despite having some attendance issues due to sickness she reported use of the coping skills and strategies to help her manage mental health symptoms. Issues Still to be Addressed:: Client could benefit from continued work with decreasing anxious avoidance, working on anxiety exposure goals to improve independence and improve confidence in her own decision making. Discharge Recommendations/Instructions:: Client had been provided with a list of providers to establish with a Primary Care Doctor that could manage her psychiatric medications. At time of discharge client did not report having a scheduled appointment with a PCP. Client had been provided with outpatient therapy practice to establish individual counseling with [facility]. Client had reported reaching out to the practice but at time of discharge did not have a scheduled appointment. This insurance writer encouraged client to continue to reach out to these providers to ensure establishment with medication management and counseling. Discharge Handout
== END 2024-04-11 12:15 | disposition home or self-care (01) ==
LOC: BHIOP 14:47
PROVIDERS: Referring Provider Psychiatry & Neurology Psychiatry; Visit Provider Psychiatry & Neurology Psychiatry
DX: F33.1 Major depressive disorder, recurrent, moderate (principal); F41.0 Panic disorder [episodic paroxysmal anxiety]; F41.1 Generalized anxiety disorder
CPT/HCPCS: H2012; H2020